=== PATIENT | female | born 1955 | race Caucasian/White ===

== ENCOUNTER 2018-09-19 08:06 | Day surgery (SDC) | payer MEDICARE, MEDICAID ==
[2018-09-18 10:22] LABS: ALANINE AMINOTRANSFERASE 27 U/L (12-78); ALBUMIN 3.7 g/dL (3.4-5.0); ANION GAP 2 mmol/L (5-15); CALCIUM 8.9 mg/dL (8.5-10.1); CHLORIDE 109 mmol/L (98-107); CREATININE 0.58 mg/dL (0.55-1.02)
[2018-09-18 10:24] LABS: ALKALINE PHOSPHATASE 80 U/L (45-117); BILIRUBIN,TOTAL 0.4 mg/dL (0.2-1.0); TOTAL PROTEIN 6.8 g/dL (6.4-8.2)
[~2018-09-19] VITALS: Ht 160 cm; Wt 57.0 kg
[~2018-09-19 08:06] MED LIST: ALPR0.254 PO; CYCL-259 PO; DICL100G25 TP; DICL2SOL TP; DIPH25CA61 PO; GABA300C10 PO; HYDROCHLOROTH12.5 MG PO; LIDO1ADH58 TD; LIDO35.46 TP; LISI-170 PO; LORA10TA75 PO; MIRA50TA PO; MULT-658 PO; POTA10TA6 PO; RANI150T4 PO; VIT1CAPS42 PO; calcium PO
[2018-09-19] MEDS ORDERED: LACTATED RINGERS 1,000 ML IV SCH (08:38)
[2018-09-19] MEDS ORDERED: BUPIVACAINE/PF 0.5% ONE (08:39)
[2018-09-19 08:40] VITALS: BP 125/80
[2018-09-19] MEDS ORDERED: MIDAZOLAM 1 MG/ML, 2ML ONE (09:28)
[2018-09-19] MEDS ORDERED: FENTANYL PF 100 MCG/2ML ONE (09:29)
[2018-09-19] MEDS ORDERED: PROMETHAZINE 25 MG/ML, 1ML IV PRN (09:30)
[2018-09-19] MEDS ORDERED: OXYcodone 5 MG/5 ML ORAL.SOL UDC PO PRN (09:30)
[2018-09-19] MEDS ORDERED: LABETALOL 5MG/ML, 20ML IV PRN (09:30)
[2018-09-19] MEDS ORDERED: ONDANSETRON 2MG/ML, 2ML IV PRN (09:30)
[2018-09-19] MEDS ORDERED: hydrALAzine 20 MG/ML, 1ML IV PRN (09:30)
[2018-09-19] MEDS ORDERED: MEPERIDINE/PF 25MG/0.5ML IVPush PRN (09:30)
[2018-09-19] MEDS ORDERED: FENTANYL PF 100 MCG/2ML IV PRN (09:30)
[2018-09-19] MEDS ORDERED: ACETAMINOPHEN 325 MG TABLET PO PRN (09:30)
[2018-09-19] MEDS ORDERED: HYDROmorphone 2 MG/ML, 1ML IVPush PRN (09:30)
[2018-09-19] MEDS ORDERED: DEXAMETHASONE 4 MG/ML, 1ML ONE ×2 (11:17→12:10)
[2018-09-19] MEDS ORDERED: PROPOFOL 10 MG/ML, 20ML ONE (11:18)
[2018-09-19] MEDS ORDERED: CEFAZOLIN 1,000 MG ONE (11:18)
[2018-09-19] MEDS ORDERED: ROCURONIUM 10MG/ML,5ML ONE (11:18)
[2018-09-19] MEDS ORDERED: ONDANSETRON 2MG/ML, 2ML ONE (12:06)
[2018-09-19] MEDS ORDERED: BUPIVACAINE/PF-EPI 0.5% 1:200K ONE (12:17)
[2018-09-19] MEDS ORDERED: LIDOCAINE 1%, 20ML ONE (12:17)
[2018-09-19] MEDS ORDERED: ACETAMINOPHEN 325 MG TABLET ONE (12:56)
== END 2018-09-19 14:30 | disposition home or self-care (01) ==
LOC: OUT 08:06
PROVIDERS: ATTEND Podiatrist Foot & Ankle Surgery
DX: M20.12 Hallux valgus (acquired), left foot (principal); I10 Essential (primary) hypertension; J45.909 Unspecified asthma, uncomplicated; M10.9 Gout, unspecified; Z86.73 Personal history of transient ischemic attack (TIA), and cerebral infarction without residual deficits; Z88.1 Allergy status to other antibiotic agents; Z90.49 Acquired absence of other specified parts of digestive tract
CPT/HCPCS: 28297; 36415; 73620; 76000; 80053; 93005; C1713; C1776; J0690; J1100; J2250; J2405; J2704; J3010; J7120